=== PATIENT | female | born 1990 | race Caucasian/White ===

== ENCOUNTER 2017-06-16 20:48 | Emergency (ER) | payer MEDICAID ==
[2017-06-16 20:59] VITALS: BMI 22.3
[2017-06-16 21:32] LABS: BILIRUBIN,URINE NEGATIVE (NEGATIVE); BLOOD/HEMOGLOBIN,URINE 2+ (NEGATIVE); GLUCOSE, URINE NEGATIVE (NEGATIVE); KETONES,URINE 4+ (NEGATIVE); LEUKOCYTE ESTERASE ,URINE 1+ (NEGATIVE); NITRITES,URINE NEGATIVE (NEGATIVE); PROTEIN,URINE 2+ (NEGATIVE); UROBILINOGEN,URINE NORMAL (NORMAL)
[2017-06-16 21:43] LABS: APPEARANCE,URINE SLIGHTLY HAZY (CLEAR); BACTERIA,URINE TRACE /HPF (NEGATIVE); COLOR,URINE YELLOW (YELLOW); RBC,URINE 0-6 /HPF (NEGATIVE); SQUAMOUS EPITHELIAL CELL,UR MODERATE /HPF (NEGATIVE)
[2017-06-16 21:44] LABS: MUCUS,URINE MODERATE /HPF (NEGATIVE)
[2017-06-16] MEDS ORDERED: NS 1000 ML 1,000 ML IV ONE (21:57)
--- NOTE | 2017-06-16 21:59 | DR.PREG ---
HPI - Time seen Time seen: 21:55 - PCP Primary Care Physician: REGINE - Chief Complaint Chief Complaint:: 4 WK OB COMPLAINT OF SPOTTING FOR LAST COUPLE DAYS(BLEEDING NOT HEAVY ENOUGH TO WEAR PANYLINER), N/V/D, FEVER SINCE SATURDAY. ABD PAIN FOR LAST 3 HRS. SEEN LAST WEEK. A1. [facility] [place] [id number]. [id number] - Source History Provided: Patient - Mode of Arrival Mode of Arrival: Ambulatory - Context : 3 Para: 1 - Timing Onset of Chief Complaint: 06/14/17 PMH - PMH Past Medical History: Yes Past Medical History: Hypertension Past Surgical History: Yes Past Surgical History Comment: HEART SURGERY IN 2009, AST CLOSURE. - Family History History of Family Medical Conditions: No - Social History Does patient currently use any type of tobacco product: No Have you used tobacco products in the last 12 months: No Type of Tobacco Use: None Alcohol Use: None Do you use any recreational Drugs:: No Lives With: Spouse, Family Lives Where: Home - infectious screening Have you traveled outside the country in the last 6 months?: No Isolation: Standard ROS - Review of Systems Eyes: No Symptoms Reported ENTM: No Symptoms Reported Respiratoy: No Symptoms Reported Cardiovascular: No Symptoms Reported Gastrointestinal/Abdominal: No Symptoms Reported Genitourinary: No Symptoms Reported Neurological: No Symptoms Reported Musculoskeletal: No Symptoms Reported Integumentary: No Symptoms Reported Hematologic/Lymphatic: No Symptoms Reported Endocrine: No Symptoms Reported Psychiatric: No Symptoms Reported All Other Systems: Reviewed and Negative PE - Vital Signs Vitals: Temperature 98.6 F Pulse Rate 87 Respiratory Rate 16 Blood Pressure 131/89 O2 Sat by Pulse Oximetry 100 - General General Appearance: Alert, In No Apparent Distress - Head Head Exam: Normal Inspection, Atraumatic - Eyes Eye exam: Normal Appearance, PERRL, EOMI - ENT ENT Exam: Normal Exam - Neck Neck Exam: Normal Inspection, Full ROM - Chest Chest Inspection: Normal Inspection, Symmetric Chest Wall Rise - Respiratory Respiratory Exam: Normal Lung Sounds Bilat Respiratory Exam: Bilateral Clear to Auscultation - Cardiovascular Cardiovascular Exam: Regular Rate, Normal Rhythm - Abdominal Exam Abdominal Exam: Normal Inspection Abdominal Tenderness: negative: RUQ, RLQ, LUQ, LLQ, Epigastrium, Suprapubic, Diffuse, Mild, Moderate, Severe, Other - Exam Type: N/A Contractions: None - Extremeties Extremities Exam: Normal Inspection, Full ROM - Neurologic Neurological Exam: Alert, Oriented X3, CN II-XII Intact - Psychiatric Psychiatric Exam: Normal Affect - Skin Skin Exam: Warm, Dry, Intact ROR - Labs Reviewed Result Diagrams: 06/16/17 22:00 06/16/17 22:00 Laboratory: WBC 8.2 X10^3/uL (3.6-10.0) 06/16/17 22:00 RBC 5.19 X10^6/uL (3.5-5.4) 06/16/17 22:00 Hgb 15.0 g/dL (12.0-16.0) 06/16/17 22:00 Hct 42.9 % (36.0-47.0) 06/16/17 22:00 MCV 82.7 fL (80.0-100.0) 06/16/17 22:00 MCH 29.0 pg (27.0-34.0) 06/16/17 22:00 MCHC 35.1 g/dL (33.0-35.0) H 06/16/17 22:00 RDW 12.5 % (11.6-16.5) 06/16/17 22:00 Plt Count 216 X10^3/uL (150.0-450.0) 06/16/17 22:00 MPV 9.9 fL (7.4-11.0) 06/16/17 22:00 Neut % 59.1 % (42.0-75.0) 06/16/17 22:00 Lymph % 23.0 % (21.0-51.0) 06/16/17 22:00 [place] % 15.4 % (0.0-13.0) H 06/16/17 22:00 Eos % 1.8 % (0.9-2.9) 06/16/17 22:00 Baso % 0.7 % (0.2-1.0) 06/16/17 22:00 Neut # 4.8 x10^3/uL (2.2-4.8) 06/16/17 22:00 Lymph # 1.9 X10^3/uL (1.3-2.9) 06/16/17 22:00 [place] # 1.3 x10^3/uL (0.3-0.8) H 06/16/17 22:00 Eos # 0.2 x10^3/uL (0.0-0.2) 06/16/17 22:00 Baso # 0.1 X10^3/uL (0.0-0.1) 06/16/17 22:00 Absolute Nucleated RBC 0.1 /100WBC 06/16/17 22:00 Sodium 137 mmol/L (136-145) 06/16/17 22:00 Corrected Sodium TNP 06/16/17 22:00 Potassium 3.8 mmol/L (3.5-5.1) 06/16/17 22:00 Chloride 102 mmol/L (98-107) 06/16/17 22:00 Carbon Dioxide 26.2 mmol/L (21-32) 06/16/17 22:00 BUN 13 mg/dL (7-18) 06/16/17 22:00 Creatinine 0.85 mg/dL (0.55-1.02) 06/16/17 22:00 Est GFR (MDRD) Af Amer > 60 (>60) 06/16/17 22:00 Est GFR (MDRD) Non-Af > 60 (>60) 06/16/17 22:00 Glucose 87 mg/dL (65-99) 06/16/17 22:00 Calcium 8.9 mg/dL (8.5-10.1) 06/16/17 22:00 Corrected Calcium TNP 06/16/17 22:00 Total Bilirubin 0.80 mg/dL (0.2-1.0) 06/16/17 22:00 AST 20 Units/L (15-37) 06/16/17 22:00 ALT 22 Units/L (12-78) 06/16/17 22:00 Alkaline Phosphatase 54 Units/L (46-116) 06/16/17 22:00 Total Protein 7.1 g/dL (6.4-8.2) 06/16/17 22:00 Albumin 3.8 g/dL (3.4-5.0) 06/16/17 22:00 Globulin 3.3 g/dL (2.5-4.5) 06/16/17 22:00 Albumin/Globulin Ratio 1.2 Ratio (1.1-2.1) 06/16/17 22:00 HCG, Quant 98890 mIU/mL (0-6) H 06/16/17 22:00 Specimen Type Clean catch urine 06/16/17: Urine Color Yellow (YELLOW) 06/16/17: Urine Appearance Slightly hazy (CLEAR) 06/16/17: Urine pH 5.0 (5.0 - 8.0) 06/16/17: Ur Specific [place] 1.020 (1.000-1.030) 06/16/17: Urine Protein 2+ (NEGATIVE) 06/16/17: Urine Glucose (UA) Negative (NEGATIVE) 06/16/17: Urine Ketones 4+ (NEGATIVE) 06/16/17 Urine Occult Blood 2+ (NEGATIVE) 06/16/17: Urine Nitrite Negative (NEGATIVE) 06/16/17: Urine Bilirubin Negative (NEGATIVE) 06/16/17: Urine Urobilinogen Normal (NORMAL) 06/16/17: Ur Leukocyte Esterase 1+ (NEGATIVE) 06/16/17: Urine RBC 0-6 /HPF (NEGATIVE) 06/16/17: Urine WBC 1-5 /HPF (NEGATIVE) 06/16/17: Ur Squamous Epith Cells Moderate /HPF (NEGATIVE) 06/16/17: Urine Bacteria Trace /HPF (NEGATIVE) 06/16/17: Urine Mucus Moderate /HPF (NEGATIVE) 06/16/17: Ur Culture Indicated? No/not indicated 06/16/17: - XRAY XRAY Interpreted by: Radiologist (OB US: A viable single intrauterine is identified with heart tones of 132 beats per minute. The crown rump length is 3.2mm giving an estimated gestational age of 6 weeks, 0 days. The yolk sac is normal in appearance. There is no placental abnormality or evidence of a subchorionic hemorrhage. The left ovary demonstrates normal sonographic appearance without dominant cystic mass or abnormal color Doppler flow. The right ovary was not visualized.:ImpressionSingle viable intra uterine with an estimated gestational age of 6 weeks, 0 days. No placental abnormality or subchorionic hemorrhage identified.) - Diagnosis Discharge Problem: single viable intra uterine - Discharge Plan Condition: Stable - Follow ups/Referrals Follow ups/Referrals: MICHELL WEINER [Primary Care Provider] - 3 days - Instructions
[2017-06-16] MEDS ORDERED: NS 1000 ML 1,000 ML ONE (22:09)
[2017-06-16 22:12] LABS: BASOPHILS # (AUTO) 0.1 X10^3/uL (0.0-0.1); BASOPHILS % (AUTO) 0.7 % (0.2-1.0); EOSINOPHILS # (AUTO) 0.2 x10^3/uL (0.0-0.2); EOSINOPHILS % (AUTO) 1.8 % (0.9-2.9); HEMATOCRIT 42.9 % (36.0-47.0); LYMPHOCYTES # (AUTO) 1.9 X10^3/uL (1.3-2.9); MEAN CORPUSCULAR HGB CONC 35.1 g/dL (33.0-35.0); MEAN CORPUSCULAR VOLUME 82.7 fL (80.0-100.0); MEAN PLATELET VOLUME 9.9 fL (7.4-11.0); MONOCYTES # (AUTO) 1.3 x10^3/uL (0.3-0.8); MONOCYTES % (AUTO) 15.4 % (0.0-13.0); NEUTROPHILS # (AUTO) 4.8 x10^3/uL (2.2-4.8); NEUTROPHILS % (AUTO) 59.1 % (42.0-75.0); PLATELET COUNT 216 X10^3/uL (150.0-450.0); RED BLOOD COUNT 5.19 X10^6/uL (3.5-5.4); RED CELL DISTRIBUTION WIDTH 12.5 % (11.6-16.5); WHITE BLOOD COUNT 8.2 X10^3/uL (3.6-10.0)
[2017-06-16 22:21] LABS: ALANINE AMINOTRANSFERASE 22 Units/L (12-78); ALBUMIN 3.8 g/dL (3.4-5.0); ALKALINE PHOSPHATASE 54 Units/L (46-116); ASPARTATE AMINO TRANSFERASE 20 Units/L (15-37); BLOOD UREA NITROGEN 13 mg/dL (7-18); CALCIUM 8.9 mg/dL (8.5-10.1); CARBON DIOXIDE 26.2 mmol/L (21-32); CHLORIDE 102 mmol/L (98-107); CREATININE 0.85 mg/dL (0.55-1.02); SODIUM 137 mmol/L (136-145); TOTAL PROTEIN 7.1 g/dL (6.4-8.2); eGFR BLACK RACES > 60 (>60); eGFR NON BLACK RACES > 60 (>60)
--- NOTE | 2017-06-17 00:11 | US ---
OB ultrasound Indication:vaginal bleeding Comparison: None available Technique: Multiple grayscale and color flow Doppler images of the pelvis were obtained. Findings: A viable single intrauterine is identified with heart tones of 132 beats per minute. The crown rump lenght is 3.2mm giving an estimated gestational age of 6 weeks, 0 days. The yolk sac is normal in appearance. There is no placental abnormality or evidence of a subchorionic hemorrhage. The left ovary demonstrates normal sonographic appearance without dominant cystic mass or abnormal co satnam Doppler flow. The right ovary was not visualized. No pelvic free fluid. Impression: Single viable intra-uterine with an estimated gestational age of 6 weeks, 0 days. No placen anthony abnormality or subchorionic hemorrhage identifed. Reported By:
[2017-06-17 00:32] VITALS: BP 145/79
== END 2017-06-17 00:32 | disposition home or self-care (01) ==
LOC: ER 20:48
DX: O26.859 Spotting complicating pregnancy, unspecified trimester (principal); Z3A.01 Less than 8 weeks gestation of pregnancy
CPT/HCPCS: 36415; 76801; 80053; 81001; 84702; 85025; 96365; 96367; 99283; 99284; A4222

== ENCOUNTER → 2017-12-05 | Outpatient (CLI) | payer OTHER | LOC: RT 13:33 | PROVIDERS: ATTEND Internal Medicine Cardiovascular Disease | DX: R00.0 Tachycardia, unspecified (principal) | CPT/HCPCS: 93005; 93010 ==

== ENCOUNTER 2017-12-09 10:14 | Emergency (ER) | payer OTHER ==
[2017-12-09 10:19] VITALS: BP 125/77
--- NOTE | 2017-12-09 10:51 | DR.PREG ---
HPI - Time seen Time seen: 10:50 - PCP Primary Care Physician: REGINE - Chief Complaint Chief Complaint:: PT. STATES SHE HAS BEEN HAVING GRACY CEE SINCE SATURDAY WELL CRAMPING. SHE STATES THEY ARE NOT REGULAR. SHE STATES AT 0300 SHE HAD LOWER BACK PAIN WELL SUPRAPUBIC CRAMPING. DENIES VAGINAL BLEEDING OR FLUID LEAKAGE. - Source History Provided: Patient - Mode of Arrival Mode of Arrival: Ambulatory - Context : 3 Para: 1 - Timing Onset of Chief Complaint: 12/06/17 Pain: Irregular - Duration Pain Strength: Moderate PMH - PMH Past Medical History: Yes Past Medical History: Hypertension Past Medical History Comment: A-FIB, PAC'S Past Surgical History: Yes Surgical History: Angioplasty/Stents - Family History History of Family Medical Conditions: No - Social History Does patient currently use any type of tobacco product: No Have you used tobacco products in the last 12 months: No Type of Tobacco Use: None Does any household member use tobacco: No Alcohol Use: None Do you use any recreational Drugs:: No Lives With: Spouse Lives Where: Home - infectious screening In the last 2 months have you had wt loss of >10#?: NO Have you had fever, night sweats or hemotysis?: No Have you traveled outside the country in the last 6 months?: No Isolation: Standard PE - Vital Signs Vitals: Temperature 99.3 F Pulse Rate 99 Respiratory Rate 18 Blood Pressure [Right Arm] 145/79 Blood Pressure 125/77 O2 Sat by Pulse Oximetry 99 - Discharge Plan Condition: Stable - Follow ups/Referrals Follow ups/Referrals: MICHELL WEINER [Primary Care Provider] - 3 days - Instructions
[2017-12-09 10:55] LABS: BILIRUBIN,URINE NEGATIVE (NEGATIVE); BLOOD/HEMOGLOBIN,URINE NEGATIVE (NEGATIVE); GLUCOSE, URINE NEGATIVE (NEGATIVE); KETONES,URINE NEGATIVE (NEGATIVE); LEUKOCYTE ESTERASE ,URINE 2+ (NEGATIVE); NITRITES,URINE NEGATIVE (NEGATIVE); PROTEIN,URINE NEGATIVE (NEGATIVE); UROBILINOGEN,URINE NORMAL (NORMAL)
[2017-12-09 11:00] LABS: APPEARANCE,URINE HAZY (CLEAR); COLOR,URINE YELLOW (YELLOW)
[2017-12-09 11:08] LABS: RBC,URINE 0-2 /HPF (NONE SEEN)
[2017-12-09 11:09] LABS: BACTERIA,URINE 1+ /HPF (NEGATIVE); SQUAMOUS EPITHELIAL CELL,UR MANY /HPF (NEGATIVE)
== END 2017-12-09 11:13 | disposition home or self-care (01) ==
LOC: ER 10:23
DX: O60.02 Preterm labor without delivery, second trimester (principal)
CPT/HCPCS: 81001; 87086; 99284

== ENCOUNTER 2018-01-22 20:19 | Inpatient (IN) ==
[~2018-01-22 20:19] MED LIST: PITOCIN ONE; VERSED ONE; XYLOCAINE 2 % (PLAIN) ONE
[2018-01-22] MEDS ORDERED: D5 1/2 NS 1000 ML 1,000 ML IV ONE (20:35)
[2018-01-22 20:55] LABS: AMNISURE ROM TEST NO MEMBRANES RUPTURE (NO RUPTURE)
[2018-01-22 21:17] LABS: BILIRUBIN,URINE NEGATIVE (NEGATIVE); BLOOD/HEMOGLOBIN,URINE 2+ (NEGATIVE); GLUCOSE, URINE NEGATIVE (NEGATIVE); KETONES,URINE 1+ (NEGATIVE); LEUKOCYTE ESTERASE ,URINE NEGATIVE (NEGATIVE); NITRITES,URINE NEGATIVE (NEGATIVE); PROTEIN,URINE NEGATIVE (NEGATIVE); UROBILINOGEN,URINE NORMAL (NORMAL)
[2018-01-22 21:21] LABS: APPEARANCE,URINE SLIGHTLY HAZY (CLEAR); COLOR,URINE YELLOW (YELLOW)
[2018-01-22 21:24] LABS: BASOPHILS # (AUTO) 0.1 X10^3/uL (0.0-0.1); BASOPHILS % (AUTO) 0.7 % (0.2-1.0); EOSINOPHILS % (AUTO) 0.1 % (0.9-2.9); HEMATOCRIT 39.2 % (36.0-47.0); HEMOGLOBIN 13.2 g/dL (12.0-16.0); LYMPHOCYTES # (AUTO) 3.5 X10^3/uL (1.3-2.9); LYMPHOCYTES % (AUTO) 17.6 % (21.0-51.0); MEAN CORPUSCULAR HGB CONC 33.7 g/dL (33.0-35.0); MEAN CORPUSCULAR VOLUME 74.2 fL (80.0-100.0); MEAN PLATELET VOLUME 10.5 fL (7.4-11.0); MONOCYTES # (AUTO) 1.9 x10^3/uL (0.3-0.8); MONOCYTES % (AUTO) 9.3 % (0.0-13.0); NEUTROPHILS # (AUTO) 14.5 x10^3/uL (2.2-4.8); NEUTROPHILS % (AUTO) 72.3 % (42.0-75.0); PLATELET COUNT 205 X10^3/uL (150.0-450.0); RED BLOOD COUNT 5.28 X10^6/uL (3.5-5.4); RED CELL DISTRIBUTION WIDTH 14.1 % (11.6-16.5)
[2018-01-22 21:27] LABS: RBC,URINE 0-2 /HPF (NONE SEEN); SQUAMOUS EPITHELIAL CELL,UR RARE /HPF (NEGATIVE)
[2018-01-22 21:28] LABS: AMORPHOUS SEDIMENT,UR 3+ /HPF (NEGATIVE); BACTERIA,URINE NEGATIVE /HPF (NEGATIVE)
[2018-01-22] MEDS ORDERED: NS 100 ML IV 100 ML IV ONE (21:30)
[2018-01-22] MEDS ORDERED: AMPICILLIN VIAL 2 GRAM ONE (21:30)
[2018-01-22] MEDS ORDERED: FENTANYL INJ 100 mcg ONE (21:30)
[2018-01-22] MEDS ORDERED: LR 1000 ML IV 1,000 ML IV ONE (21:30)
[2018-01-22] MEDS ORDERED: PITOCIN ONE (21:31)
[2018-01-22] MEDS ORDERED: NAROPIN EPIDURAL 0.2% + FENTANYL 90MCG 60 ML EPI ONE (21:31)
[2018-01-22 21:33] LABS: ALANINE AMINOTRANSFERASE 17 Units/L (12-78); ALBUMIN 2.7 g/dL (3.4-5.0); ALKALINE PHOSPHATASE 138 Units/L (46-116); ASPARTATE AMINO TRANSFERASE 14 Units/L (15-37); BLOOD UREA NITROGEN 7 mg/dL (7-18); CALCIUM 8.9 mg/dL (8.5-10.1); CARBON DIOXIDE 20.9 mmol/L (21-32); CHLORIDE 104 mmol/L (98-107); COR CA(FOR HYPOALB) 9.9 mg/dL (8.5-10.1); CREATININE 0.61 mg/dL (0.55-1.02); SODIUM 140 mmol/L (136-145); TOTAL PROTEIN 6.7 g/dL (6.4-8.2); eGFR NON BLACK RACES > 60 (>60)
[2018-01-22 21:38] LABS: HYPOCHROMASIA SLIGHT; MICROCYTOSIS SLIGHT; PLATELET MORPHOLOGY COMMENT NORMAL (NORMAL)
[2018-01-22] MEDS ORDERED: DILAUDID INJ ONE (21:38)
[2018-01-22] MEDS ORDERED: XYLOCAINE 2 % (PLAIN) ONE (21:49)
[2018-01-22] MEDS ORDERED: XYLOCAINE 1% and EPINEPHRINE 1:100,000 ONE (21:49)
--- NOTE | 2018-01-22 21:50 | DR.OB ---
OB Quick Note - Assessment/Plan Assessment/Plan: L&D 01/22/18 at 9:40pm S-No complaint except pain with CTX. O-Afebrile,VSS SVE=012 with good LTV, +accel, no decel. CTX=q 1 1/2-3 min., strong by palpation CVX=3-4cm/100%/0/VTX AROM with clear fluid. IUPC and FSE placed. A-IUP at 37 2/7 weeks in labor Mitral Stenosis Multiparity desiring permanent sterilization P-Begin pitocin augmentation as needed Begin ABX in labor Anticipate
[2018-01-22] MEDS ORDERED: PITOCIN IVP ONE (21:55)
[2018-01-22] MEDS ORDERED: DILAUDID INJ IVP PRN (21:55)
[2018-01-22] MEDS ORDERED: REGLAN INJ 10 MG VIAL IVP PRN (21:55)
[2018-01-22] MEDS ORDERED: NUBAIN INJ 200 MG VIAL MULTIDOSE IVP PRN (21:55)
[2018-01-22] MEDS ORDERED: D5LR 1L W PITOCIN 10 UNITS/L 10 UNITS/1,000 ML BAG IV PRN (21:55)
[2018-01-22] MEDS ORDERED: PHENERGAN INJ 25 MG IV PRN (21:55)
[2018-01-22 21:59] VITALS: BMI 23.2
[2018-01-22] MEDS ORDERED: AMPICILLIN VIAL 2 GRAM 2 G in NS 100 ML IV + SPIKE MINIBAG* 100 ML IV SCH (22:00)
[2018-01-22] MEDS ORDERED: D5 1/2 NS 1000 ML 1,000 ML IV SCH (22:00)
[2018-01-22] MEDS: D5 1/2 NS 1L W PITOCIN 20 UNITS/L 20 UNITS/1,000 ML BAG IV ONE (23:28)
[2018-01-23] MEDS ORDERED: AMPICILLIN VIAL 1 GRAM 1 G in NS 50 ML IV + SPIKE MINIBAG* 50 ML IV SCH (01:56)
[2018-01-23] MEDS ORDERED: ANCEF 1 GRAM IV PREMIX* 1 G/50 ML BAG IV ONE (01:58)
[2018-01-23] MEDS ORDERED: DURAMORPH ONE (02:14)
--- NOTE | 2018-01-23 02:29 | DR.OB ---
OB Quick Note - Assessment/Plan Assessment/Plan: L&D 01/23/18 at 2:00am Ampicillin S-No complaint. s/p epidural. 0-Afebrile,VSS GBH=363 with poor LTV, few accels, repetitive deep variables to 40's with some late component. Few late decels. CTX=q 1 1/2 to 2 min., about 45-65mmHg CVX=8cm/100%/0 A-IUP at 37 3/7 weeks with distress distant from delivery P-For C/S with BTL
[2018-01-23] MEDS ORDERED: DILAUDID INJ IVP PRN (02:30)
[2018-01-23] MEDS ORDERED: REGLAN INJ 10 MG VIAL IVP PRN (02:30)
[2018-01-23] MEDS ORDERED: ZOFRAN INJ 4 MG VIAL IVP PRN ×2 (02:30→04:03)
[2018-01-23] MEDS ORDERED: BENADRYL INJ 50 MG VIAL IVP PRN ×2 (02:30→04:03)
[2018-01-23] MEDS ORDERED: PHENERGAN INJ 25 MG IVP PRN (02:30)
[2018-01-23] MEDS: D5 1/2 NS 1L W PITOCIN 20 UNITS/L 20 UNITS/1,000 ML BAG IV ONE (02:50)
[2018-01-23] MEDS ORDERED: D5 1/2 NS 1000 ML 1,000 ML with PITOCIN 20 UNITS IV SCH ×2 (04:03)
[2018-01-23] MEDS ORDERED: NARCAN INJ IVP PRN (04:03)
[2018-01-23] MEDS ORDERED: ADACEL or BOOSTRIX TDaP VACCINE IM ONE (04:03)
[2018-01-23] MEDS ORDERED: MYLICON TAB 80 MG CHEW PO PRN (04:03)
[2018-01-23] MEDS ORDERED: TORADOL 30 MG VIAL IVP PRN (04:03)
[2018-01-23] MEDS ORDERED: PERCOCET TAB 5/325 MG PO PRN (04:03)
[2018-01-23 05:36] LABS: HEMATOCRIT 33.9 % (36.0-47.0); HEMOGLOBIN 11.6 g/dL (12.0-16.0)
[2018-01-23] MEDS: ANCEF VIAL 1 GRAM 1 G in NS 100 ML IV + SPIKE MINIBAG* 100 ML IV SCH (06:17)
[2018-01-23] MEDS ORDERED: ATIVAN TAB 0.5 MG PO SCH (09:00)
[2018-01-23] MEDS: LOPRESSOR TAB 25 MG PO SCH (09:34)
[2018-01-23] MEDS ORDERED: ATIVAN TAB 0.5 MG PO PRN (09:49)
[2018-01-23] MEDS: PRENATAL PLUS PO SCH (09:52)
[2018-01-23] MEDS: ZANTAC PO SCH ×2 (09:52→20:18)
[2018-01-23] MEDS: BACTROBAN TOPICAL OINT TOP SCH ×2 (14:01→21:22)
[2018-01-23] MEDS: COLACE CAP 100 MG PO SCH (20:18)
[2018-01-23] MEDS ORDERED: LOPRESSOR TAB 50 MG PO SCH (21:00)
[2018-01-24] MEDS: MOTRIN TAB 800 MG PO PRN ×2 (04:15→09:23)
[2018-01-24] MEDS: BACTROBAN TOPICAL OINT TOP SCH (06:22)
[2018-01-24] MEDS: COLACE CAP 100 MG PO SCH (09:23)
[2018-01-24] MEDS: PRENATAL PLUS PO SCH (09:23)
[2018-01-24] MEDS: ZANTAC PO SCH (09:24)
[2018-01-24] MEDS: LOPRESSOR TAB 25 MG PO SCH (09:24)
[2018-01-24 13:23] VITALS: BP 132/79
[2018-01-29] MEDS ORDERED: DILAUDID INJ ONE ×2 (08:15→09:22)
== END 2018-01-24 15:45 | disposition home or self-care (01) | DRG 766 ==
LOC: ER 20:19 → LD 21:00 → MED/SURG 01-23 03:49
PROVIDERS: ADMIT Specialist; ATTEND Specialist
DX: Z30.2 Encounter for sterilization; O99.343 Other mental disorders complicating pregnancy, third trimester; Z3A.37 37 weeks gestation of pregnancy; Z87.898 Personal history of other specified conditions; O77.8 Labor and delivery complicated by other evidence of fetal stress; Z37.0 Single live birth
CPT/HCPCS: 36415; 80053; 81001; 84112; 85014; 85018; 85025; 86592; 86850; 86900; 86901; 96365; 99284; A4216; A4222; S0197; J0290; J0690; J1170; J2250; J2590; J3010; J3490; J7050; J7120; S5010